=== PATIENT | female | born 1995 | race Caucasian/White ===

== ENCOUNTER 2023-03-29 20:11 | Outpatient (CLI) | payer OTHER ==
[~2023-03-29] VITALS: Ht 165.1 cm; Wt 86.2 kg
[2023-03-29] MEDS ORDERED: PRENATABS RX T1 EACH PO (20:28)
[2023-03-29 20:53] LABS: URINE APPEARANCE Cloudy; URINE BILIRRUBIN Negative (NEGATIVE); URINE BLOOD Negative; URINE COLOR Yellow; URINE GLUCOSE Negative (NEGATIVE); URINE LEUKOCYTE Large; URINE NITRATE Negative; URINE PROTEIN Negative (NEGATIVE); URINE UROBILINOGEN 0.2 E.U./dl
[2023-03-29 20:56] LABS: HEMATOCRIT 30.7 % (36.0-45.00); HEMOGLOBIN 10.5 g/dL (12.0-15.00); MEAN CELL VOLUME 92.8 fL (80.00-100.00); MEAN CORPUSCULAR HEMOGLOBIN 31.9 pg (27.00-32.0); MEAN CORPUSCULAR HGB CONC 34.4 g/dl (32.0-36.0); PLATELET COUNT 215 K/uL (150-450); RED CELL DISTRIBUTION WIDTH 12.9 % (11.5-14.5)
[2023-03-29 20:57] LABS: URINE BACTERIA 3459.7 uL (0.0-1933); URINE EPITHELIAL CELLS 60.4 uL (0.0-38.8); URINE RBC 2.1 uL (0.0-20.8); URINE WBC 1749.4 uL (0.0-23.2)
[2023-03-29 21:18] LABS: ALBUMIN 2.9 gm/dL (3.4-5.0); BILIRUBIN TOTAL 0.18 mg/dL (0.3-1.2); CALCIUM 8.9 mg/dL (8.5-10.1); CREATININE SERUM 0.48 mg/dL (0.55-1.02); GFR 157.58; GLOBULINA 3.8 G/DL (2.4-3.5); POTASSIUM 3.62 mEq/L (3.5-5.1); TOTAL PROTEIN 6.7 gm/dL (6.4-8.2)
[2023-03-30] MEDS ORDERED: CEFADROXIL500 MG PO (07:03)
== END 2023-03-30 07:37 | disposition home or self-care (01) ==
LOC: OBS/DEL 20:11
PROVIDERS: ATTEND Specialist
DX: O23.42 Unspecified infection of urinary tract in pregnancy, second trimester (principal); N39.0 Urinary tract infection, site not specified; Z3A.24 24 weeks gestation of pregnancy